=== PATIENT | female | born 1950 | race Caucasian/White ===

== ENCOUNTER → 2016-10-12 | Outpatient (CLI) | payer OTHER ==
[2016-08-05 18:38] VITALS: BP 146/72
[2016-10-12 08:25] LABS: BASOPHILS # (AUTO) 0.1 X10^3/uL (0.0-0.1); BASOPHILS % (AUTO) 1.1 % (0.2-1.0); EOSINOPHILS # (AUTO) 0.2 x10^3/uL (0.0-0.2); HEMATOCRIT 38.2 % (36.0-47.0); HEMOGLOBIN 12.6 g/dL (12.0-16.0); LYMPHOCYTES # (AUTO) 1.7 X10^3/uL (1.3-2.9); LYMPHOCYTES % (AUTO) 25.4 % (21.0-51.0); MEAN CORPUSCULAR HEMOGLOBIN 28.1 pg (27.0-34.0); MEAN CORPUSCULAR HGB CONC 32.9 g/dL (33.0-35.0); MEAN CORPUSCULAR VOLUME 85.2 fL (80.0-100.0); MEAN PLATELET VOLUME 8.2 fL (7.4-11.0); MONOCYTES # (AUTO) 0.6 x10^3/uL (0.3-0.8); MONOCYTES % (AUTO) 8.4 % (0.0-13.0); NEUTROPHILS # (AUTO) 4.2 x10^3/uL (2.2-4.8); NEUTROPHILS % (AUTO) 62.1 % (42.0-75.0); PLATELET COUNT 197 X10^3/uL (150.0-450.0); RED BLOOD COUNT 4.48 X10^6/uL (3.5-5.4); RED CELL DISTRIBUTION WIDTH 13.8 % (11.6-16.5); WHITE BLOOD COUNT 6.8 X10^3/uL (3.6-10.0)
[2016-10-12 08:58] LABS: ALANINE AMINOTRANSFERASE 25 Units/L (12-78); ALBUMIN 3.7 g/dL (3.4-5.0); ALKALINE PHOSPHATASE 115 Units/L (46-116); ASPARTATE AMINO TRANSFERASE 21 Units/L (15-37); BLOOD UREA NITROGEN 15 mg/dL (7-18); CARBON DIOXIDE 28.7 mmol/L (21-32); CHLORIDE 104 mmol/L (98-107); COR NA(FOR HYPERGLY) 143 mmol/L (136-145); GLUCOSE 112 mg/dL (65-99); SODIUM 143 mmol/L (136-145); TOTAL PROTEIN 7.5 g/dL (6.4-8.2); eGFR BLACK RACES > 60 (>60); eGFR NON BLACK RACES > 60 (>60)
--- NOTE | 2016-10-12 08:59 | RAD ---
HISTORY: Preoperative exam for removal of neck nodule Study: Two views is T Comparison: None Findings: The trachea is midline. The cardiac silhouette is at the upper limits of normal. The lungs are jaycob ar without focal infiltrate or effusion. Dextro curvature of the thoracic spine is noted. IMPRESSION: 1. No acute cardiopulmonary disease. Reported By:
== END ==
LOC: LAB 08:03
PROVIDERS: ATTEND Surgery
DX: Z01.812 Encounter for preprocedural laboratory examination (principal); Z01.810 Encounter for preprocedural cardiovascular examination; Z01.811 Encounter for preprocedural respiratory examination; Z79.01 Long term (current) use of anticoagulants; R22.1 Localized swelling, mass and lump, neck
CPT/HCPCS: 36415; 71020; 80053; 85025; 93005; 93010

== ENCOUNTER → 2017-03-09 | Outpatient (CLI) | payer OTHER ==
[2016-08-05 18:38] VITALS: BP 146/72
[2017-03-09 11:31] LABS: ALANINE AMINOTRANSFERASE 28 Units/L (12-78); ALBUMIN 3.6 g/dL (3.4-5.0); ALKALINE PHOSPHATASE 115 Units/L (46-116); ASPARTATE AMINO TRANSFERASE 25 Units/L (15-37); BLOOD UREA NITROGEN 14 mg/dL (7-18); CARBON DIOXIDE 31.4 mmol/L (21-32); CHLORIDE 106 mmol/L (98-107); CHOL/HDL RATIO 4.4 (0.0-5.0); CHOLESTEROL 239 mg/dL (0-200); CREATININE 0.84 mg/dL (0.55-1.02); HDL CHOLESTEROL 54 mg/dL (40-60); SODIUM 144 mmol/L (136-145); TOTAL PROTEIN 7.5 g/dL (6.4-8.2); TRIGLYCERIDES 106 mg/dL (0-150); TSH (3RD GENERATION) 1.225 uIU/mL (0.358-3.74); eGFR BLACK RACES > 60 (>60); eGFR NON BLACK RACES > 60 (>60)
== END ==
LOC: LAB 09:42
DX: I10 Essential (primary) hypertension (principal); Z79.899 Other long term (current) drug therapy; E04.1 Nontoxic single thyroid nodule
CPT/HCPCS: 36415; 80053; 80061; 84443

== ENCOUNTER → 2017-03-21 | Outpatient (CLI) | payer OTHER ==
[2016-08-05 18:38] VITALS: BP 146/72
[2017-03-21 09:22] LABS: TSH (3RD GENERATION) 2.314 uIU/mL (0.358-3.74)
== END ==
LOC: LAB 08:25
PROVIDERS: ATTEND Internal Medicine Endocrinology, Diabetes & Metabolism
DX: E89.0 Postprocedural hypothyroidism (principal); I10 Essential (primary) hypertension; E04.1 Nontoxic single thyroid nodule
CPT/HCPCS: 36415; 84439; 84443

== ENCOUNTER 2017-05-21 08:47 | Emergency (ER) | payer OTHER ==
[2017-05-21 09:01] VITALS: BP 143/78; BMI 35.4
--- NOTE | 2017-05-21 09:38 | DR.URIAD ---
HPI - Time Seen Time seen: 09:34 - PCP Primary Care Physician: NICANOR - Complaint Chief Complaint Doctors Comments: Patient reports that she has had symptoms for one week onset and has gotten worse. She admits to headache, bodyache, cough and congestion. Chief Complaint:: FLU LIKE SYMPTOMS, BODY ACHES, OINTS HURT, HEAD AND THROAT HURTING. - Source History Provided: Patient - Mode of Arrival Mode of Arrival: Ambulatory - Timing Onset of Chief Complaint: 05/16/17 PMH - PMH Past Medical History: Yes Past Medical History: Hypertension, Hyperthyroidism Past Surgical History: Yes Surgical History: Hysterectomy, Ortho Surgery, Thyroidectomy, Other - Family History History of Family Medical Conditions: Yes Family Medical History: Coronary Artery Disease, Hypertension - Social History Does any household member use tobacco: No Alcohol Use: None Do you use any recreational Drugs:: No Lives With: Spouse Lives Where: Home - infectious screening In the last 2 months have you had wt loss of >10#?: NO Have you had fever, night sweats or hemotysis?: No Have you traveled outside the country in the last 6 months?: No Isolation: Standard ROS - Review of Systems Eyes: No Symptoms Reported ENTM: No Symptoms Reported Respiratoy: No Symptoms Reported Cardiovascular: No Symptoms Reported Gastrointestinal/Abdominal: No Symptoms Reported Genitourinary: No Symptoms Reported Neurological: No Symptoms Reported Musculoskeletal: No Symptoms Reported Integumentary: No Symptoms Reported Hematologic/Lymphatic: No Symptoms Reported Endocrine: No Symptoms Reported Psychiatric: No Symptoms Reported All Other Systems: Reviewed and Negative PE - Vital Signs Vitals: Temperature 99.4 F Pulse Rate 98 Respiratory Rate 20 Blood Pressure 143/78 O2 Sat by Pulse Oximetry 99 - General Limitations: No Limitations General Appearance: Alert - Head Head Exam: Normal Inspection, Atraumatic - Eyes Eye exam: Normal Appearance, PERRL, EOMI - ENT ENT Exam: Normal Exam External Ear Exam: Normal External Inspection TM/Canal Exam: Bilateral Normal Nose Exam: Normal Nose Exam Nasal Speculum Exam: Bilateral Normal Mouth Exam: Normal Inspection Throat Exam: Normal Inspection - Neck Neck Exam: Normal Inspection - Chest Chest Inspection: Normal Inspection, Symmetric Chest Wall Rise - Respiratory Respiratory Exam: Normal Lung Sounds Bilat Respiratory Exam: Bilateral Clear to Auscultation - Cardiovascular Cardiovascular Exam: Regular Rate, Normal Rhythm - Abdominal Exam Abdominal Exam: Normal Inspection, Normal Bowel Sounds Abdominal Tenderness: negative: RUQ, RLQ, LUQ, LLQ, Epigastrium, Suprapubic, Diffuse, Mild, Moderate, Severe, Other - Extremeties Extremities Exam: Normal Inspection - Back Back Exam: Normal Inspection, Full ROM - Neurologic Neurological Exam: Alert, Oriented X3, CN II-XII Intact - Psychiatric Psychiatric Exam: Normal Affect - Skin Skin Exam: Warm, Dry, Intact Course - Reevaluation 1st: Improved ROR - Labs Reviewed Laboratory Results Reviewed?: Yes (strep negative; Influenza A&B negative) Result Diagrams: 05/21/17 09:51 05/21/17 09:51 Laboratory: WBC 12.4 X10^3/uL (3.6-10.0) H 05/21/17 09:51 RBC 4.29 X10^6/uL (3.5-5.4) 05/21/17 09:51 Hgb 12.3 g/dL (12.0-16.0) 05/21/17 09:51 Hct 36.3 % (36.0-47.0) 05/21/17 09:51 MCV 84.6 fL (80.0-100.0) 05/21/17 09:51 MCH 28.7 pg (27.0-34.0) 05/21/17 09:51 MCHC 33.9 g/dL (33.0-35.0) 05/21/17 09:51 RDW 13.3 % (11.6-16.5) 05/21/17 09:51 Plt Count 195 X10^3/uL (150.0-450.0) 05/21/17 09:51 MPV 8.4 fL (7.4-11.0) 05/21/17 09:51 Neut % 76.3 % (42.0-75.0) H 05/21/17 09:51 Lymph % 14.3 % (21.0-51.0) L 05/21/17 09:51 [place] % 7.9 % (0.0-13.0) 05/21/17 09:51 Eos % 0.7 % (0.9-2.9) L 05/21/17 09:51 Baso % 0.8 % (0.2-1.0) 05/21/17 09:51 Neut # 9.5 x10^3/uL (2.2-4.8) H 05/21/17 09:51 Lymph # 1.8 X10^3/uL (1.3-2.9) 05/21/17 09:51 [place] # 1.0 x10^3/uL (0.3-0.8) H 05/21/17 09:51 Eos # 0.1 x10^3/uL (0.0-0.2) 05/21/17 09:51 Baso # 0.1 X10^3/uL (0.0-0.1) 05/21/17 09:51 Absolute Nucleated RBC 0.1 /100WBC 05/21/17 09:51 Sodium 143 mmol/L (136-145) 05/21/17 09:51 Corrected Sodium 144 mmol/L (136-145) 05/21/17 09:51 Potassium 3.8 mmol/L (3.5-5.1) 05/21/17 09:51 Chloride 104 mmol/L (98-107) 05/21/17 09:51 Carbon Dioxide 30.6 mmol/L (21-32) 05/21/17 09:51 BUN 12 mg/dL (7-18) 05/21/17 09:51 Creatinine 0.89 mg/dL (0.55-1.02) 05/21/17 09:51 Est GFR (MDRD) Af Amer > 60 (>60) 05/21/17 09:51 Est GFR (MDRD) Non-Af > 60 (>60) 05/21/17 09:51 Glucose 127 mg/dL (65-99) H 05/21/17 09:51 Calcium 9.6 mg/dL (8.5-10.1) 05/21/17 09:51 Corrected Calcium TNP 05/21/17 09:51 Total Bilirubin 0.40 mg/dL (0.2-1.0) 05/21/17 09:51 AST 18 Units/L (15-37) 05/21/17 09:51 ALT 25 Units/L (12-78) 05/21/17 09:51 Alkaline Phosphatase 144 Units/L (46-116) H 05/21/17 09:51 Total Protein 7.2 g/dL (6.4-8.2) 05/21/17 09:51 Albumin 3.6 g/dL (3.4-5.0) 05/21/17 09:51 Globulin 3.6 g/dL (2.5-4.5) 05/21/17 09:51 Albumin/Globulin Ratio 1.0 Ratio (1.1-2.1) L 05/21/17 09:51 Influenza Type A (PCR) Negative (NEGATIVE) 05/21/17 09:20 Influenza Type B (PCR) Negative (NEGATIVE) 05/21/17 09:20 Streptococcus Screen Negative (NEGATIVE) 05/21/17 10:21 - Diagnosis Discharge Problem: Influenza-like symptoms - Discharge Plan Condition: Stable - Follow ups/Referrals Follow ups/Referrals: CARMINA TENA [Primary Care Provider] - 3 days - Instructions
[2017-05-21] MEDS ORDERED: TORADOL 30 MG VIAL IVP ONE (09:39)
[2017-05-21] MEDS ORDERED: NS 1000 ML 1,000 ML IV ONE (09:39)
[2017-05-21 10:02] LABS: BASOPHILS # (AUTO) 0.1 X10^3/uL (0.0-0.1); BASOPHILS % (AUTO) 0.8 % (0.2-1.0); EOSINOPHILS # (AUTO) 0.1 x10^3/uL (0.0-0.2); EOSINOPHILS % (AUTO) 0.7 % (0.9-2.9); HEMATOCRIT 36.3 % (36.0-47.0); HEMOGLOBIN 12.3 g/dL (12.0-16.0); LYMPHOCYTES # (AUTO) 1.8 X10^3/uL (1.3-2.9); LYMPHOCYTES % (AUTO) 14.3 % (21.0-51.0); MEAN CORPUSCULAR HEMOGLOBIN 28.7 pg (27.0-34.0); MEAN CORPUSCULAR HGB CONC 33.9 g/dL (33.0-35.0); MEAN CORPUSCULAR VOLUME 84.6 fL (80.0-100.0); MEAN PLATELET VOLUME 8.4 fL (7.4-11.0); MONOCYTES % (AUTO) 7.9 % (0.0-13.0); NEUTROPHILS # (AUTO) 9.5 x10^3/uL (2.2-4.8); NEUTROPHILS % (AUTO) 76.3 % (42.0-75.0); PLATELET COUNT 195 X10^3/uL (150.0-450.0); RED BLOOD COUNT 4.29 X10^6/uL (3.5-5.4); RED CELL DISTRIBUTION WIDTH 13.3 % (11.6-16.5); WHITE BLOOD COUNT 12.4 X10^3/uL (3.6-10.0)
[2017-05-21] MEDS ORDERED: TORADOL 30 MG VIAL ONE (10:03)
[2017-05-21] MEDS ORDERED: NS 1000 ML 1,000 ML ONE (10:03)
[2017-05-21 10:31] LABS: ALANINE AMINOTRANSFERASE 25 Units/L (12-78); ALBUMIN 3.6 g/dL (3.4-5.0); ALKALINE PHOSPHATASE 144 Units/L (46-116); ASPARTATE AMINO TRANSFERASE 18 Units/L (15-37); TOTAL PROTEIN 7.2 g/dL (6.4-8.2); eGFR BLACK RACES > 60 (>60); eGFR NON BLACK RACES > 60 (>60)
[2017-05-21 10:48] LABS: BLOOD UREA NITROGEN 12 mg/dL (7-18); CALCIUM 9.6 mg/dL (8.5-10.1); CARBON DIOXIDE 30.6 mmol/L (21-32); CHLORIDE 104 mmol/L (98-107); COR NA(FOR HYPERGLY) 144 mmol/L (136-145); CREATININE 0.89 mg/dL (0.55-1.02); SODIUM 143 mmol/L (136-145)
== END 2017-05-21 11:23 | disposition home or self-care (01) ==
LOC: ER 08:47
DX: J11.1 Influenza due to unidentified influenza virus with other respiratory manifestations (principal)
CPT/HCPCS: 36415; 80053; 85025; 87070; 87502; 87880; 96365; 96374; 99283; A4222; J1885

== ENCOUNTER → 2017-09-13 | Outpatient (CLI) | payer OTHER, MEDICARE ==
[2017-09-13 08:50] LABS: FREE T4 (FREE THYROXINE) 1.08 ng/dL (0.76-1.46); TSH (3RD GENERATION) 1.953 uIU/mL (0.358-3.74)
== END ==
LOC: LAB 08:08
PROVIDERS: ATTEND Internal Medicine Endocrinology, Diabetes & Metabolism
DX: E89.0 Postprocedural hypothyroidism (principal); I10 Essential (primary) hypertension
CPT/HCPCS: 36415; 84439; 84443

== ENCOUNTER → 2017-11-14 | Outpatient (CLI) | payer OTHER, MEDICARE ==
[2017-11-14 08:29] LABS: BLOOD UREA NITROGEN 11 mg/dL (7-18); CALCIUM 8.2 mg/dL (8.5-10.1); CARBON DIOXIDE 30.7 mmol/L (21-32); CHLORIDE 105 mmol/L (98-107); COR NA(FOR HYPERGLY) 144 mmol/L (136-145); CREATININE 0.86 mg/dL (0.55-1.02); SODIUM 143 mmol/L (136-145); eGFR BLACK RACES > 60 (>60); eGFR NON BLACK RACES > 60 (>60)
== END ==
LOC: LAB 08:05
PROVIDERS: ATTEND Specialist
DX: I10 Essential (primary) hypertension (principal); Z79.899 Other long term (current) drug therapy
CPT/HCPCS: 36415; 80048